=== PATIENT | male | born 1995 | race Caucasian/White ===

== ENCOUNTER 2017-05-23 12:42 | Emergency (ER) | payer OTHER ==
[~2017-05-23] VITALS: Ht 170.2 cm; Wt 67.9 kg
[2017-05-23 12:45] VITALS: BP 112/94
[2017-05-23] MEDS ORDERED: MOTRIN800 MG PO (13:56)
[2017-05-23] MEDS ORDERED: BACTRIM,SEPT1 TABLET PO (13:56)
[2017-05-23] MEDS ORDERED: KEFLEX500 MG PO (13:56)
== END 2017-05-23 14:04 | disposition home or self-care (01) ==
LOC: EME 12:42
PROC: 0H94XZZ Drainage of Neck Skin, External Approach (ICD-10-PCS; principal; 2017-05-23)
DX: L02.11 Cutaneous abscess of neck (principal); L03.221 Cellulitis of neck; Z72.0 Tobacco use
CPT/HCPCS: 99281; 99284

== ENCOUNTER 2017-07-09 16:54 | Emergency (ER) | payer OTHER ==
[~2017-07-09] VITALS: Ht 170.2 cm; Wt 68.1 kg
[~2017-07-09 16:54] MED LIST: BACTRIM,SEPT1 TABLET PO; KEFLEX500 MG PO; MOTRIN800 MG PO
[2017-07-09 18:32] LABS: EOSINOPHIL (%) 4.2 % (0-5); EOSINOPHIL COUNT 0.2 K/uL (0-0.3); HEMATOCRIT 40.1 % (38.0-50.0); IMMATURE GRANULOCYTE (%) 0.2 % (0.0-0.7); INSTRUMENT ABS NEUTROPHIL CT 2.3 K/uL; LYMPHOCYTE COUNT 1.8 K/uL (1.0-2.8); MCH 31.5 PG (29.0-34.0); MCHC 33.9 G/DL (30.0-36.0); MCV 92.8 FL (86-99); MEAN PLAT.VOLUME 8.8 uM^3 (9.0-12.4); MONOCYTE (%) 8.4 % (3-12); MONOCYTE COUNT 0.4 K/uL (0-0.8); NEUTROPHIL COUNT 2.3 K/uL (1.8-6.4); PLATELET COUNT 259 K/uL (156-360); RBC DIS.WIDTH-CV 13.4 % (11.8-14.6); RBC DIS.WIDTH-SD 46.2 % (39-53); RED BLOOD COUNT 4.32 M/uL (4.00-5.50); WHITE BLOOD COUNT 4.7 K/uL (4.1-10.2)
[2017-07-09 18:46] LABS: CHLORIDE 108 mEq/L (99-109); POTASSIUM 3.8 mEq/L (3.7-5.4); SODIUM 143 mEq/L (136-147)
[2017-07-09 18:47] LABS: GLUCOSE 93 mg/dL (70-99)
[2017-07-09 18:49] LABS: ANION GAP 12 MEQ/L (2-14)
[2017-07-09 18:51] LABS: GFR ESTIMATE (CALCULATED) > 59 mL/min/
[2017-07-09 18:52] LABS: UREA NITROGEN (BUN) 4 mg/dL (9-23)
[2017-07-09] MEDS ORDERED: TYLENOL WITH C1 EACH PO (22:15)
[2017-07-09 23:25] LABS: ADD MIUA? NO; BILIRUBIN NEGATIVE; BLOOD NEGATIVE; COLOR STRAW ((YELLOW)); GLUCOSE (STRIP) NEGATIVE; KETONES NEGATIVE; LEUKOCYTES NEGATIVE; NITRITE NEGATIVE; PROTEIN (STRIP) NEGATIVE; SPECIFIC GRAVITY 1.006 (1.000-1.030); UCUL ADDED? NO; UROBILINOGEN 0.2 MG/DL (0.2-1.0)
[2017-07-09 23:46] VITALS: BP 107/89
== END 2017-07-09 23:46 | disposition home or self-care (01) ==
LOC: EME 16:54
PROVIDERS: Emergency Medicine
PROC: 2W3RX1Z Immobilization of Left Lower Leg using Splint (ICD-10-PCS; principal; 2017-07-09)
DX: S82.52XA Displaced fracture of medial malleolus of left tibia, initial encounter for closed fracture (principal); S20.229A Contusion of unspecified back wall of thorax, initial encounter; M25.521 Pain in right elbow; V87.8XXA Person injured in other specified noncollision transport accidents involving motor vehicle (traffic), initial encounter; Y03.0XXA Assault by being hit or run over by motor vehicle, initial encounter; Y07.04 Female partner, perpetrator of maltreatment and neglect; F10.99 Alcohol use, unspecified with unspecified alcohol-induced disorder; F12.90 Cannabis use, unspecified, uncomplicated; F17.200 Nicotine dependence, unspecified, uncomplicated
CPT/HCPCS: 71010; 72132; 73590; 73610; 74177; 80048; 81003; 85025; 99281; 99285

== ENCOUNTER 2017-10-24 19:35 | Emergency (ER) | payer OTHER ==
[~2017-10-24] VITALS: Ht 170.2 cm; Wt 69.9 kg
[~2017-10-24 19:35] MED LIST changes: +TYLENOL WITH C1 EACH PO
[2017-10-24 20:10] LABS: HEMATOCRIT 42.7 % (38.0-50.0); HEMOGLOBIN 14.5 G/DL (12.5-16.6); MCH 30.1 PG (29.0-34.0); MCV 88.8 FL (86-99); PLATELET COUNT 336 K/uL (156-360); RBC DIS.WIDTH-CV 14.2 % (11.8-14.6); RED BLOOD COUNT 4.81 M/uL (4.00-5.50); WHITE BLOOD COUNT 6.4 K/uL (4.1-10.2)
[2017-10-24 20:15] LABS: ALBUMIN 4.1 g/dL (3.2-4.8); CHLORIDE 104 mEq/L (99-109); POTASSIUM 3.6 mEq/L (3.7-5.4); SODIUM 144 mEq/L (136-147)
[2017-10-24 20:18] LABS: GLUCOSE 119 mg/dL (70-99); TOTAL PROTEIN 7.1 g/dL (6.4-8.3)
[2017-10-24 20:19] LABS: TOTAL BILIRUBIN 0.2 mg/dL (0.0-1.0)
[2017-10-24 20:20] LABS: SERUM ETHYL ALCOHOL 328 mg/dL
[2017-10-24 20:21] LABS: CREATININE 0.7 mg/dL (0.6-1.3); GFR ESTIMATE (CALCULATED) > 59 mL/min/ (58.99-99999)
[2017-10-24 20:22] LABS: ALKALINE PHOSPHATASE 88 IU/L (3-129)
[2017-10-24 20:23] LABS: AST (GOT) 22 IU/L (2-34); UREA NITROGEN (BUN) 4 mg/dL (9-23)
[2017-10-24 20:25] LABS: ACETAMINOPHEN (TYLENOL) < 10 mcg/mL (10-30); ALT (GPT) 21 IU/L (3-49); SALICYLATE < 5.0 MG/DL (15-30)
[2017-10-25 04:17] VITALS: BP 125/76
== END 2017-10-25 04:18 | disposition home or self-care (01) ==
LOC: EME → EDBD 19:35 → EME 10-25 04:18
PROVIDERS: Emergency Medicine
DX: F10.129 Alcohol abuse with intoxication, unspecified (principal); R41.82 Altered mental status, unspecified; Y90.8 Blood alcohol level of 240 mg/100 ml or more; Z72.0 Tobacco use
CPT/HCPCS: 80053; 85027; 93005; 99281; 99284; G0480